=== PATIENT | female | born 1985 | race Caucasian/White ===

== ENCOUNTER 2017-08-28 13:33 | Emergency (ER) | payer OTHER | END 2017-08-28 15:02 | disposition home or self-care (01) | LOC: ERS 13:33 | DX: J11.1 Influenza due to unidentified influenza virus with other respiratory manifestations (principal); B34.9 Viral infection, unspecified; F43.10 Post-traumatic stress disorder, unspecified; F31.9 Bipolar disorder, unspecified; F41.9 Anxiety disorder, unspecified | CPT/HCPCS: 87081; 87430; 87804; 99283 ==

== ENCOUNTER 2022-04-25 11:43 | Day surgery (SDC) | payer OTHER ==
[2022-04-24 14:07] VITALS: BMI 30.9
[2022-04-25] MEDS ORDERED: Bupivacaine HCl 0.5%/Epinephrine 1:200,000/PF 30 ml Vial ONE ×2 (12:01→15:04)
[2022-04-25] MEDS ORDERED: fentaNYL PF 100 MCG/2 ML SYRINGE ONE ×2 (14:03→16:53)
[2022-04-25] MEDS ORDERED: Propofol 1,000 MG/100 ML VIAL IV ONE (14:03)
[2022-04-25] MEDS ORDERED: Famotidine/PF 20 mg/2ml Vial ONE (14:03)
[2022-04-25] MEDS ORDERED: Ondansetron PF 4 MG/2 ML Vial ONE ×3 (14:03→17:59)
[2022-04-25] MEDS ORDERED: Propofol 500 MG/50 ML VIAL ONE (14:03)
[2022-04-25] MEDS ORDERED: Metoclopramide HCl 10 MG/2 ML VIAL ONE (14:33)
[2022-04-25] MEDS ORDERED: Dexamethasone 20 MG/5 ML VIAL ONE (14:33)
[2022-04-25] MEDS ORDERED: Lidocaine 1% PF 5 ML VIAL ONE (14:33)
[2022-04-25] MEDS ORDERED: PROPOFOL 200 MG/20 ML VIAL ONE (14:33)
[2022-04-25] MEDS ORDERED: diphenhydrAMINE 50 MG/ML VIAL ONE (14:33)
[2022-04-25] MEDS ORDERED: Succinylcholine Chloride 100 MG/5 ML SYRINGE FS ONE (14:33)
[2022-04-25] MEDS ORDERED: Ketorolac Tromethamine 30 MG/ML VIAL ONE (14:33)
[2022-04-25] MEDS ORDERED: HYDROmorphone 2 MG/ML VIAL ONE (15:07)
[2022-04-25] MEDS ORDERED: HYDROcodone/Acetaminophen 5/325 mg Tablet ONE (17:27)
[2022-04-25] MEDS ORDERED: Promethazine HCl 25 MG/ML VIAL ONE (18:56)
== END 2022-04-25 19:25 | disposition home or self-care (01) ==
LOC: SDC 11:43
PROVIDERS: ATTEND Specialist
PROC: 00HU3MZ Insertion of Neurostimulator Lead into Spinal Canal, Percutaneous Approach (ICD-10-PCS; principal; 2022-04-25)
PROC: 0JH70DZ Insertion of Multiple Array Stimulator Generator into Back Subcutaneous Tissue and Fascia, Open Approach (ICD-10-PCS; principal; 2022-04-25)
DX: G90.522 Complex regional pain syndrome I of left lower limb (principal); G89.4 Chronic pain syndrome; Z79.899 Other long term (current) drug therapy; Z88.0 Allergy status to penicillin; Z88.2 Allergy status to sulfonamides; Z91.018 Allergy to other foods; Z91.030 Bee allergy status
CPT/HCPCS: 72070; C1713; C1778; C1787; C1820; J1100; J1170; J1200; J1885; J2405; J2550; J2704; J2765; L8689; S0028

== ENCOUNTER 2023-10-05 09:00 | Emergency (ER) | payer OTHER ==
[2023-10-05] MEDS ORDERED: Ondansetron ODT 4 MG TAB ONE ×2 (09:40→09:42)
[2023-10-05] MEDS ORDERED: Ibuprofen 200 MG TAB ONE (09:40)
[2023-10-05] MEDS ORDERED: Dexamethasone 10 MG/ML VIAL ONE (09:40)
[2023-10-05] MEDS ORDERED: Acetaminophen 500 MG TAB ONE (10:56)
== END 2023-10-05 12:04 | disposition home or self-care (01) ==
LOC: ERS 09:00
DX: B34.9 Viral infection, unspecified (principal); J04.0 Acute laryngitis; F17.290 Nicotine dependence, other tobacco product, uncomplicated
CPT/HCPCS: 87081; 87430; 99283; J1100; Q0162

== ENCOUNTER 2024-03-25 08:30 | Outpatient (CLI) | payer OTHER ==
[2024-03-25] MEDS ORDERED: Regadenoson 0.4 MG/5 ML SYRINGE ONE (09:37)
== END 2024-03-25 08:31 | disposition home or self-care (01) ==
LOC: NM 08:30
PROVIDERS: ATTEND Internal Medicine Cardiovascular Disease
DX: R07.9 Chest pain, unspecified (principal); I47.20 Ventricular tachycardia, unspecified
CPT/HCPCS: 78452; 93017; A9502; J2785